=== PATIENT | male | born 1965 | race African-American/Black ===

== ENCOUNTER 2021-06-04 21:16 | Inpatient (IN) | payer BC, MEDICAID ==
[~2021-06-04] VITALS: Ht 175.3 cm; Wt 106.8 kg
[~2021-06-04 21:16] MED LIST: ATOR80TA; INSUPOW
[2021-06-04] MEDS ORDERED: MORPHINE SULFATE 4 MG/ML SYR/VIAL IV ONE (21:45)
[2021-06-04] MEDS ORDERED: ASPirin 81 mg TAB PO ONE (21:45)
[2021-06-04] MEDS ORDERED: HEPARIN 1,000 UNITS/ml 1ML VIAL IV ONE (21:45)
[2021-06-04] MEDS ORDERED: SODIUM CHLORIDE 0.9% 1,000 ML IV ONE (21:45)
[2021-06-04] MEDS ORDERED: ASPirin 81 mg TAB ONE (21:54)
[2021-06-04] MEDS ORDERED: HEPARIN SODIUM (PORCINE) 5000 UNITS/ML 1ML VIAL ONE (21:55)
[2021-06-04] MEDS ORDERED: ONDANSETRON HCL 4 MG/2 ML VIAL ONE ×2 (22:01→22:02)
[2021-06-04] MEDS ORDERED: LIDOCAINE 2%HCL (LOCAL ANESTH.) INJ 20ML MDV ONE (22:02)
[2021-06-04] MEDS ORDERED: IODIXANOL 320MG/ML 100ML BTL IV ONE ×2 (22:02→22:34)
[2021-06-04] MEDS ORDERED: HEPARIN IN NS 1000Units/500mL 1,500 ML ONE (22:03)
[2021-06-04] MEDS ORDERED: ANGIOMAX 250 MG VIAL IV ONE (22:04)
[2021-06-04] MEDS ORDERED: MIDAZOLAM HCL 2MG/2ML 2ml VIAL (1mg/ml) ONE (22:05)
[2021-06-04] MEDS ORDERED: fentaNYL CITRATE 100 MCG/2 ML VL ONE (22:05)
[2021-06-04] MEDS ORDERED: SODIUM CHL 0.9% 50 ML ONE (22:05)
[2021-06-04 22:07] LABS: Basophils # (auto) 0 10 ^3/uL (0-0.2); Basophils % (auto) 0.2 % (0.0-2.0); Eosinophils # (auto) 0.2 10 ^3/uL (0-0.8); Eosinophils % (auto) 1.2 % (0.0-7.0); Hematocrit 40.9 % (41.0-53.0); Hemoglobin 13.1 g/dL (13.5-17.5); Lymphocytes # (auto) 4.6 10 ^3/uL (0.4-5.4); Lymphocytes % (auto) 25.5 % (10.0-50.0); Mean Corpuscular Hemoglobin 27.3 pg (28.0-32.0); Mean Corpuscular Volume 85.2 fL (80.0-100.0); Monocytes # (auto) 1.2 10 ^3/uL (0-1.3); Monocytes % (auto) 6.4 % (0.0-12.0); Neutrophils % (auto) 66.7 % (37.0-80.0); Red Cell Distribution Width 15.1 % (11.8-14.3)
[2021-06-04] MEDS ORDERED: DOPamine 1600MCG/ML D5W 250 ML IV ONE (22:10)
[2021-06-04] MEDS ORDERED: DOPamine 1600MCG/ML D5W 250 ML IV SCH (22:15)
[2021-06-04] MEDS ORDERED: ONDANSETRON HCL 4 MG/2 ML VIAL IV ONE (22:15)
[2021-06-04 22:28] LABS: Potassium 3.4 mmol/L (3.5-5.1)
[2021-06-04 22:34] LABS: Albumin 3.1 g/dL (3.4-5.0); BUN/Creatinine Ratio 13.1; Bilirubin, Total 0.4 mg/dL (0.2-1.0); Calcium 8.5 mg/dL (8.5-10.1); Magnesium 2.2 mg/dL (1.6-2.6); Total Protein 7.4 g/dL (6.4-8.2)
[2021-06-04 22:44] LABS: INR 0.97 (0.9-1.15); Partial Thromboplastin Time 22.7 sec (23.6-33.0)
[2021-06-04] MEDS ORDERED: TICAGRELOR 90 MG TAB ONE ×2 (23:08→23:23)
[2021-06-04] MEDS ORDERED: MORPHINE SULFATE INJECTION 2 MG/ML SYRG IV PRN (23:45)
[2021-06-04] MEDS ORDERED: NITROGLYCERIN 0.4 MG SL TAB SL PRN (23:45)
[2021-06-04] MEDS ORDERED: METOPROLOL TARTRATE 1MG/1ML-5ML VIAL IV ONE (23:54)
[2021-06-05] VITALS (15 sets, daily range): BP systolic 92–147; BP diastolic 58–96
[2021-06-05] MEDS ORDERED: ONDANSETRON HCL 4 MG/2 ML VIAL IV PRN
[2021-06-05] MEDS ORDERED: SOD CHL 0.45% 1,000 ML IV ONE
[2021-06-05] MEDS ORDERED: ACETAMINOPHEN 500 MG TAB PO PRN
[2021-06-05] MEDS ORDERED: HYDROmorphone HCL 2 MG/ML VL IV PRN
[2021-06-05] MEDS ORDERED: DEXTROSE (50%) 50ML SYRG IV PRN
[2021-06-05] MEDS ORDERED: METOPROLOL TARTRATE 1MG/1ML-5ML VIAL IV PRN
[2021-06-05] MEDS ORDERED: METOCLOPRAMIDE HCL 5MG/ml INJ 2ml VIAL IV ONE (00:30)
[2021-06-05] MEDS ORDERED: ALBUTEROL SULF 2.5 MG/0.5ML(0.5%) NEB SOLN NEB ONE (01:15)
[2021-06-05] MEDS ORDERED: IPRATROPIUM BROM 0.5 MG/2.5ML INH SOL NEB ONE (01:15)
[2021-06-05] MEDS: PIPERACILLIN-TAZOB 3.375GM 100 ML IV SCH ×4 (01:17→23:52)
[2021-06-05] MEDS ORDERED: FUROSEMIDE 20 MG/2 ML VIAL IV ONE ×2 (01:30→14:45)
[2021-06-05 03:38] LABS: Amphetamine Screen, Urine NEGATIVE (NEGATIVE); Barbiturate Scree,Urine NEGATIVE (NEGATIVE); Benzodiazephine Screen, Urine NEGATIVE (NEGATIVE); Cannabinoid Screen, Urine NEGATIVE (NEGATIVE); Cocaine Screen, Urine NEGATIVE (NEGATIVE); Opiate Scree,Urine POSITIVE (NEGATIVE); Phencyclidine Screen, Urine NEGATIVE (NEGATIVE)
[2021-06-05 03:47] LABS: Urine Bacteria NONE SEEN /hpf (None Seen); Urine Blood 2+ /uL (Negative); Urine Mucus FEW (None Seen); Urine WBC 3 /hpf (0 - 3)
[2021-06-05 03:48] LABS: Urine Specific Gravity > 1.050 (1.001-1.035)
[2021-06-05 05:02] LABS: Basophils # (auto) 0 10 ^3/uL (0-0.2); Basophils % (auto) 0.1 % (0.0-2.0); Eosinophils # (auto) 0 10 ^3/uL (0-0.8); Hematocrit 39.5 % (41.0-53.0); Hemoglobin 12.8 g/dL (13.5-17.5); Lymphocytes # (auto) 0.6 10 ^3/uL (0.4-5.4); Mean Corpuscular Hemoglobin 27.5 pg (28.0-32.0); Mean Corpuscular Hgb Conc. 32.5 g/dL (32.0-36.0); Mean Corpuscular Volume 84.6 fL (80.0-100.0); Monocytes # (auto) 0.4 10 ^3/uL (0-1.3); Monocytes % (auto) 3.9 % (0.0-12.0); Neutrophils # (auto) 10.3 10 ^3/uL (1.6-8.6); Red Blood Cells 4.67 10^6/uL (4.5-5.90); White Blood Cell 11.3 10^3/uL (4.4-10.8)
[2021-06-05 05:12] LABS: Calcium 8.1 mg/dL (8.5-10.1); Potassium 4.4 mmol/L (3.5-5.1)
[2021-06-05 05:44] LABS: BUN/Creatinine Ratio 16.6
[2021-06-05] MEDS: ACCU-CHEK COMFORT CURVE STRIP VI SCH ×4 (07:23→21:38)
[2021-06-05] MEDS: InsuLIN REG 1unit/0.01ml Soln (100units/ml) SC SCH ×4 (07:26→21:39)
[2021-06-05] MEDS: PANTOPRAZOLE 40 MG/10 ML VIAL INJ IV SCH ×2 (09:38→21:36)
[2021-06-05] MEDS: TICAGRELOR 90 MG TAB PO SCH ×2 (09:40→21:37)
[2021-06-05] MEDS ORDERED: ASPirin-EC 81 mg tab PO ONE (10:00)
[2021-06-05] MEDS ORDERED: METOPROLOL TARTRATE 25 MG TAB PO ONE (10:00)
[2021-06-05] MEDS ORDERED: ATORVASTATIN 20 MG TAB PO ONE (10:00)
[2021-06-05] MEDS ORDERED: ASPirin 81 mg TAB PO ONE (15:00)
[2021-06-05] MEDS: Glucerna Carbsteady SHAKE Vanilla 8oz PO SCH (18:00)
[2021-06-05] MEDS: ATORVASTATIN 20 MG TAB PO SCH (21:38)
[2021-06-06] MEDS: HYDROcodone-ACET 5/325MG TAB PO PRN ×3 (01:57→21:37)
[2021-06-06 04:59] VITALS: BP 105/57
[2021-06-06 06:06] LABS: Basophils # (auto) 0 10 ^3/uL (0-0.2); Basophils % (auto) 0.2 % (0.0-2.0); Eosinophils # (auto) 0 10 ^3/uL (0-0.8); Eosinophils % (auto) 0.1 % (0.0-7.0); Hematocrit 31.5 % (41.0-53.0); Hemoglobin 10.4 g/dL (13.5-17.5); Lymphocytes # (auto) 1.6 10 ^3/uL (0.4-5.4); Lymphocytes % (auto) 15.9 % (10.0-50.0); Mean Corpuscular Hemoglobin 27.7 pg (28.0-32.0); Mean Corpuscular Hgb Conc. 33.1 g/dL (32.0-36.0); Mean Corpuscular Volume 83.8 fL (80.0-100.0); Monocytes # (auto) 0.7 10 ^3/uL (0-1.3); Monocytes % (auto) 6.8 % (0.0-12.0); Neutrophils # (auto) 7.8 10 ^3/uL (1.6-8.6); Nucleated Red Blood Cells % 0.1 %; Red Blood Cells 3.75 10^6/uL (4.5-5.90); Red Cell Distribution Width 14.8 % (11.8-14.3); White Blood Cell 10.2 10^3/uL (4.4-10.8)
[2021-06-06 06:20] LABS: Calcium 7.5 mg/dL (8.5-10.1); Potassium 3.8 mmol/L (3.5-5.1)
[2021-06-06 06:24] LABS: BUN/Creatinine Ratio 15.3
[2021-06-06] MEDS: ACCU-CHEK COMFORT CURVE STRIP VI SCH ×4 (07:09→21:32)
[2021-06-06] MEDS: InsuLIN REG 1unit/0.01ml Soln (100units/ml) SC SCH ×4 (07:10→21:44)
[2021-06-06] MEDS: PIPERACILLIN-TAZOB 3.375GM 100 ML IV SCH (08:31)
[2021-06-06] MEDS: Glucerna Carbsteady SHAKE Vanilla 8oz PO SCH ×3 (08:32→17:55)
[2021-06-06 09:00] VITALS: BP 95/54
[2021-06-06] MEDS: ASPirin 81 mg TAB PO SCH (10:12)
[2021-06-06] MEDS: PANTOPRAZOLE 40 MG/10 ML VIAL INJ IV SCH (10:12)
[2021-06-06] MEDS: TICAGRELOR 90 MG TAB PO SCH ×2 (10:13→21:32)
[2021-06-06 13:00] VITALS: BP 104/51
[2021-06-06 16:38] VITALS: BP 117/82
[2021-06-06] MEDS: PANTOPRAZOLE 40 MG TAB PO SCH (21:32)
[2021-06-06] MEDS: ATORVASTATIN 20 MG TAB PO SCH (21:32)
[2021-06-06 22:00] VITALS: BP 135/91
[2021-06-06] MEDS ORDERED: LORATADINE 10 MG TAB PO PRN (22:15)
[2021-06-06 22:32] VITALS: BP 125/77
[2021-06-07] MEDS ORDERED: LORATADINE 10 MG TAB PO SCH
[2021-06-07 05:00] VITALS: BP 150/93
[2021-06-07] MEDS: ACCU-CHEK COMFORT CURVE STRIP VI SCH ×4 (05:22→22:00)
[2021-06-07] MEDS: HYDROcodone-ACET 5/325MG TAB PO PRN (05:23)
[2021-06-07] MEDS: InsuLIN REG 1unit/0.01ml Soln (100units/ml) SC SCH ×4 (05:29→22:00)
[2021-06-07 06:06] LABS: Basophils # (auto) 0 10 ^3/uL (0-0.2); Basophils % (auto) 0.1 % (0.0-2.0); Eosinophils # (auto) 0.1 10 ^3/uL (0-0.8); Eosinophils % (auto) 0.7 % (0.0-7.0); Hematocrit 33.4 % (41.0-53.0); Hemoglobin 11.1 g/dL (13.5-17.5); Lymphocytes # (auto) 2.7 10 ^3/uL (0.4-5.4); Lymphocytes % (auto) 25.4 % (10.0-50.0); Mean Corpuscular Hgb Conc. 33.1 g/dL (32.0-36.0); Mean Corpuscular Volume 84.4 fL (80.0-100.0); Monocytes # (auto) 0.9 10 ^3/uL (0-1.3); Monocytes % (auto) 8.7 % (0.0-12.0); Neutrophils # (auto) 6.8 10 ^3/uL (1.6-8.6); Neutrophils % (auto) 65.1 % (37.0-80.0); Red Blood Cells 3.95 10^6/uL (4.5-5.90); Red Cell Distribution Width 14.6 % (11.8-14.3); White Blood Cell 10.5 10^3/uL (4.4-10.8)
[2021-06-07 06:25] LABS: Potassium 3.8 mmol/L (3.5-5.1)
[2021-06-07 06:49] LABS: BUN/Creatinine Ratio 15.5
[2021-06-07 08:00] VITALS: BP 121/68
[2021-06-07] MEDS: Glucerna Carbsteady SHAKE Vanilla 8oz PO SCH ×3 (08:00→18:00)
[2021-06-07] MEDS: ASPirin 81 mg TAB PO SCH (10:20)
[2021-06-07] MEDS: TICAGRELOR 90 MG TAB PO SCH (10:20)
[2021-06-07] MEDS: PANTOPRAZOLE 40 MG TAB PO SCH ×2 (10:20→21:02)
[2021-06-07] MEDS ORDERED: ALBUTEROL SULF 2.5 MG/0.5ML(0.5%) NEB SOLN NEB PRN (10:30)
[2021-06-07 12:00] VITALS: BP 124/80
[2021-06-07] MEDS ORDERED: FUROSEMIDE 40 MG/4 ML VIAL IV ONE (15:45)
[2021-06-07] MEDS ORDERED: levoFLOXacin 250 MG TAB PO ONE (15:45)
[2021-06-07] MEDS ORDERED: CLOPIDOGREL 300 MG TAB PO ONE (15:45)
[2021-06-07 16:00] VITALS: BP 142/90
[2021-06-07] MEDS: ATORVASTATIN 20 MG TAB PO SCH (20:42)
[2021-06-07 22:00] VITALS: BP 125/70
[2021-06-08 03:47] VITALS: BP 125/70
[2021-06-08 05:00] VITALS: BP 140/97
[2021-06-08] MEDS: InsuLIN REG 1unit/0.01ml Soln (100units/ml) SC SCH ×4 (05:19→21:25)
[2021-06-08 05:37] LABS: Basophils # (auto) 0 10 ^3/uL (0-0.2); Basophils % (auto) 0.1 % (0.0-2.0); Eosinophils # (auto) 0 10 ^3/uL (0-0.8); Eosinophils % (auto) 0.1 % (0.0-7.0); Hematocrit 34.7 % (41.0-53.0); Hemoglobin 11.1 g/dL (13.5-17.5); Lymphocytes # (auto) 2.2 10 ^3/uL (0.4-5.4); Lymphocytes % (auto) 18.9 % (10.0-50.0); Mean Corpuscular Hemoglobin 27.5 pg (28.0-32.0); Mean Corpuscular Hgb Conc. 32.1 g/dL (32.0-36.0); Mean Corpuscular Volume 85.7 fL (80.0-100.0); Monocytes # (auto) 0.8 10 ^3/uL (0-1.3); Monocytes % (auto) 7.2 % (0.0-12.0); Neutrophils # (auto) 8.7 10 ^3/uL (1.6-8.6); Neutrophils % (auto) 73.7 % (37.0-80.0); Red Blood Cells 4.05 10^6/uL (4.5-5.90); Red Cell Distribution Width 14.5 % (11.8-14.3); White Blood Cell 11.8 10^3/uL (4.4-10.8)
[2021-06-08] MEDS: ACCU-CHEK COMFORT CURVE STRIP VI SCH ×4 (05:41→21:21)
[2021-06-08 06:02] LABS: BUN/Creatinine Ratio 15.8; Calcium 8.3 mg/dL (8.5-10.1)
[2021-06-08 09:00] VITALS: BP 123/73
[2021-06-08] MEDS: ASPirin 81 mg TAB PO SCH (09:25)
[2021-06-08] MEDS: Glucerna Carbsteady SHAKE Vanilla 8oz PO SCH ×3 (09:25→17:39)
[2021-06-08] MEDS: PANTOPRAZOLE 40 MG TAB PO SCH ×2 (09:26→21:08)
[2021-06-08] MEDS: CLOPIDOGREL BISULFATE 75 MG TAB PO SCH (09:26)
[2021-06-08] MEDS ORDERED: levoFLOXacin 250 MG TAB PO SCH (10:00)
[2021-06-08] MEDS ORDERED: FUROSEMIDE 40 MG TAB PO SCH (10:00)
[2021-06-08 12:56] VITALS: BP 126/95
[2021-06-08 17:00] VITALS: BP 149/94
[2021-06-08] MEDS: FUROSEMIDE 20 MG/2 ML VIAL IV SCH (17:33)
[2021-06-08] MEDS: ATORVASTATIN 20 MG TAB PO SCH (21:08)
[2021-06-08] MEDS: CARVEDILOL 3.125 MG TAB PO SCH (21:20)
[2021-06-08 22:07] VITALS: BP 132/93
[2021-06-09] MEDS: FUROSEMIDE 20 MG/2 ML VIAL IV SCH ×2 (05:15→18:10)
[2021-06-09 05:26] VITALS: BP 132/84
[2021-06-09 06:12] LABS: Alanine Aminotransferase 47 U/L (16-61); Aspartate Aminotransferase 63 U/L (15-37)
[2021-06-09] MEDS: ACCU-CHEK COMFORT CURVE STRIP VI SCH ×4 (06:16→21:35)
[2021-06-09 06:17] LABS: Basophils # (auto) 0 10 ^3/uL (0-0.2); Basophils % (auto) 0.3 % (0.0-2.0); Eosinophils # (auto) 0.1 10 ^3/uL (0-0.8); Eosinophils % (auto) 1.2 % (0.0-7.0); Hematocrit 34.3 % (41.0-53.0); Hemoglobin 11.3 g/dL (13.5-17.5); Lymphocytes # (auto) 2.5 10 ^3/uL (0.4-5.4); Mean Corpuscular Hemoglobin 27.9 pg (28.0-32.0); Mean Corpuscular Hgb Conc. 32.9 g/dL (32.0-36.0); Mean Corpuscular Volume 84.6 fL (80.0-100.0); Monocytes # (auto) 0.9 10 ^3/uL (0-1.3); Monocytes % (auto) 9.1 % (0.0-12.0); Neutrophils # (auto) 6.5 10 ^3/uL (1.6-8.6); Neutrophils % (auto) 64.4 % (37.0-80.0); Red Blood Cells 4.05 10^6/uL (4.5-5.90); Red Cell Distribution Width 14.8 % (11.8-14.3); White Blood Cell 10.1 10^3/uL (4.4-10.8)
[2021-06-09] MEDS: InsuLIN REG 1unit/0.01ml Soln (100units/ml) SC SCH ×4 (06:17→21:42)
[2021-06-09 06:35] LABS: Albumin 2.5 g/dL (3.4-5.0); Alkaline Phosphatase 86 U/L (45-117); Anion Gap 14 (5-15); BUN/Creatinine Ratio 17.1; Bilirubin, Total 0.5 mg/dL (0.2-1.0); Blood Urea Nitrogen 25 mg/dL (7-18); Calcium 8.3 mg/dL (8.5-10.1); Carbon Dioxide 19 mmol/L (21-32); Chloride 104 mmol/L (98-107); GFR African American 65 mL/min; GFR Non-African American 53 mL/min; Glucose 245 mg/dL (74-106); Potassium 3.7 mmol/L (3.5-5.1); Sodium 137 mmol/L (136-145); Total Protein 6.1 g/dL (6.4-8.2)
[2021-06-09 08:00] VITALS: BP 135/80
[2021-06-09] MEDS: Glucerna Carbsteady SHAKE Vanilla 8oz PO SCH ×3 (08:26→17:56)
[2021-06-09] MEDS ORDERED: levoFLOXacin 250 MG TAB PO SCH (10:00)
[2021-06-09] MEDS: ASPirin 81 mg TAB PO SCH (11:12)
[2021-06-09] MEDS: CARVEDILOL 3.125 MG TAB PO SCH ×2 (11:13→21:35)
[2021-06-09] MEDS: PANTOPRAZOLE 40 MG TAB PO SCH ×2 (11:15→21:21)
[2021-06-09] MEDS: CLOPIDOGREL BISULFATE 75 MG TAB PO SCH (11:15)
[2021-06-09] MEDS: LISINOPRIL 5 MG TAB PO SCH (11:16)
[2021-06-09 12:00] VITALS: BP 118/62
[2021-06-09 16:00] VITALS: BP 132/91
[2021-06-09] MEDS: PIPERACILLIN-TAZOB 3.375GM 100 ML IV SCH ×2 (16:13→21:21)
[2021-06-09] MEDS ORDERED: INSULIN LANTUS (GLARGINE) 1 /0.01ml (100units/ml) SC ONE (18:00)
[2021-06-09] MEDS: IPRATROPIUM BROM 0.5 MG/2.5ML INH SOL NEB SCH (18:51)
[2021-06-09] MEDS: LEVALBUTEROL HCL 1.25 MG/3 ML NEB NEB SCH (18:51)
[2021-06-09] MEDS: ATORVASTATIN 20 MG TAB PO SCH (21:21)
[2021-06-09 22:09] VITALS: BP 114/70
[2021-06-10] MEDS: LEVALBUTEROL HCL 1.25 MG/3 ML NEB NEB SCH ×3 (00:16→13:13)
[2021-06-10] MEDS: FUROSEMIDE 20 MG/2 ML VIAL IV SCH (05:12)
[2021-06-10] MEDS: PIPERACILLIN-TAZOB 3.375GM 100 ML IV SCH (05:20)
[2021-06-10 05:27] VITALS: BP 119/66
[2021-06-10 06:02] LABS: Basophils # (auto) 0.1 10 ^3/uL (0-0.2); Basophils % (auto) 0.5 % (0.0-2.0); Eosinophils # (auto) 0.2 10 ^3/uL (0-0.8); Eosinophils % (auto) 1.6 % (0.0-7.0); Hematocrit 32.3 % (41.0-53.0); Hemoglobin 10.9 g/dL (13.5-17.5); Lymphocytes # (auto) 2.3 10 ^3/uL (0.4-5.4); Lymphocytes % (auto) 20.5 % (10.0-50.0); Mean Corpuscular Hemoglobin 27.9 pg (28.0-32.0); Mean Corpuscular Hgb Conc. 33.6 g/dL (32.0-36.0); Mean Corpuscular Volume 82.9 fL (80.0-100.0); Monocytes # (auto) 1.1 10 ^3/uL (0-1.3); Monocytes % (auto) 9.7 % (0.0-12.0); Neutrophils # (auto) 7.5 10 ^3/uL (1.6-8.6); Neutrophils % (auto) 67.7 % (37.0-80.0); Nucleated Red Blood Cells % 0.1 %; Red Cell Distribution Width 14.4 % (11.8-14.3); White Blood Cell 11.1 10^3/uL (4.4-10.8)
[2021-06-10] MEDS: InsuLIN REG 1unit/0.01ml Soln (100units/ml) SC SCH ×2 (06:32→12:00)
[2021-06-10] MEDS: ACCU-CHEK COMFORT CURVE STRIP VI SCH ×2 (06:34→12:00)
[2021-06-10] MEDS ORDERED: INSULIN LANTUS (GLARGINE) 1 /0.01ml (100units/ml) SC SCH (07:00)
[2021-06-10] MEDS: IPRATROPIUM BROM 0.5 MG/2.5ML INH SOL NEB SCH ×2 (07:03→13:13)
[2021-06-10 08:00] VITALS: BP 142/86
[2021-06-10] MEDS: Glucerna Carbsteady SHAKE Vanilla 8oz PO SCH ×2 (08:00→13:48)
[2021-06-10 09:19] LABS: Albumin 2.4 g/dL (3.4-5.0); Calcium 8.1 mg/dL (8.5-10.1); Potassium 3.5 mmol/L (3.5-5.1)
[2021-06-10 09:22] LABS: Bilirubin, Total 0.4 mg/dL (0.2-1.0)
[2021-06-10] MEDS: ASPirin 81 mg TAB PO SCH (10:52)
[2021-06-10] MEDS: CLOPIDOGREL BISULFATE 75 MG TAB PO SCH (10:53)
[2021-06-10] MEDS: CARVEDILOL 3.125 MG TAB PO SCH (10:53)
[2021-06-10] MEDS: PANTOPRAZOLE 40 MG TAB PO SCH (10:54)
[2021-06-10] MEDS: LISINOPRIL 5 MG TAB PO SCH (10:54)
[2021-06-10] MEDS ORDERED: FUROSEMIDE 20 MG/2 ML VIAL IV ONE (11:45)
[2021-06-10 12:00] VITALS: BP 121/76
[2021-06-10 15:56] VITALS: BP 135/80
[2021-06-10 16:00] VITALS: BP 128/79
== END 2021-06-10 16:45 | disposition home or self-care (01) | DRG 174 ==
LOC: ER 21:19 → TELE 23:31 → TELE-WESTW 06-05 10:17
PROVIDERS: ADMIT Specialist; ATTEND Internal Medicine
PROC: 027034Z Dilation of Coronary Artery, One Artery with Drug-eluting Intraluminal Device, Percutaneous Approach (ICD-10-PCS; principal; 2021-06-04)
PROC: 02C03ZZ Extirpation of Matter from Coronary Artery, One Artery, Percutaneous Approach (ICD-10-PCS; 2021-06-04)
PROC: 4A023N7 Measurement of Cardiac Sampling and Pressure, Left Heart, Percutaneous Approach (ICD-10-PCS; 2021-06-04)
PROC: B211YZZ Fluoroscopy of Multiple Coronary Arteries using Other Contrast (ICD-10-PCS; 2021-06-04)
PROC: B215YZZ Fluoroscopy of Left Heart using Other Contrast (ICD-10-PCS; 2021-06-04)
PROC: B240ZZ3 Ultrasonography of Single Coronary Artery, Intravascular (ICD-10-PCS; 2021-06-04)
PROC: B41FYZZ Fluoroscopy of Right Lower Extremity Arteries using Other Contrast (ICD-10-PCS; 2021-06-04)
DX: I21.19 ST elevation (STEMI) myocardial infarction involving other coronary artery of inferior wall (principal); J96.01 Acute respiratory failure with hypoxia; R65.11 Systemic inflammatory response syndrome (SIRS) of non-infectious origin with acute organ dysfunction; I50.43 Acute on chronic combined systolic (congestive) and diastolic (congestive) heart failure; N17.9 Acute kidney failure, unspecified; J18.9 Pneumonia, unspecified organism; I13.0 Hypertensive heart and chronic kidney disease with heart failure and stage 1 through stage 4 chronic kidney disease, or unspecified chronic kidney disease; E11.22 Type 2 diabetes mellitus with diabetic chronic kidney disease; N18.30 Chronic kidney disease, stage 3 unspecified; E66.9 Obesity, unspecified; Z20.822 Contact with and (suspected) exposure to COVID-19; E78.5 Hyperlipidemia, unspecified; Z79.02 Long term (current) use of antithrombotics/antiplatelets; Z79.899 Other long term (current) drug therapy; Z68.34 Body mass index [BMI] 34.0-34.9, adult
CPT/HCPCS: 36415; 36600; 71045; 75710; 76775; 80048; 80053; 80061; 80307; 81001; 82805; 82962; 83036; 83690; 83735; 83880; 84484; 85025; 85610; 85730; 86850; 86900; 86901; 87040; 87070; 87086; 87205; 87426; 92933; 93005; 93306; 93458; 94640; 96361; 96374; 96375; 99152; 99153; 99291; C1874; C9113; G0378; J1815; J2250; J2405; J2543; Q9967